=== PATIENT | female | born 1980 | race Caucasian/White ===

== ENCOUNTER 2025-07-13 02:40 | Emergency (ER) | payer BC, SELFPAY ==
[2025-07-13 02:42] VITALS: BP 112/76
--- NOTE | 2025-07-13 03:07 | ED.GENMED ---
History of Present Illness
General
Chief Complaint: Skin Surface Trauma
Source: patient
Exam Limitations: none
Time Seen by Provider: 07/13/25 02:58
Nursing documentation reviewed up to this point in time: agreed with
History of Present Illness
History of Present Illness:
Patient presents to ED secondary to persistent bleeding after she accidentally cut her right index finger with a kitchen knife, shortly prior to arrival. Patient was unable to control bleeding at home. Patient otherwise is healthy, and does not
take any blood thinning medications. Denies loss of sensation. Denies any other injury. Per patient, tetanus vaccination up-to-date.
Past History
Past History
ED Past Medical History: Other (Ovarian Cysts) and Other (Abdominal migraines, benign heart murmur,)
ED Past Surgical History: Appendectomy and Gynecological
Social History
Tobacco: Non-smoker
Alcohol: None
Drug: None
Personal:
Living: with family
Review of Systems
Review of Systems
Allergies reviewed?: Yes
All Other Systems: ROS reviewed and negative except as documented in HPI and ROS
Constitutional: Reports no symptoms
Skin: Reports other (Finger laceration)
Neurological: Reports no symptoms
Phy Exam
Physical Exam
Physical Exam:
Physical Exam
General: no apparent distress, not acutely ill. afebrile
Head: nc/at. eomi
Neck: supple. normal range of motion.
Neuro: alert and oriented x 3. no focal neurological deficits
Skin: an approx 2cm linear, horizontal laceration noted over right 2nd digit, along dorsal surface at 1st/2nd interphalangeal joint, without active bleeding
Psychiatric: well kept. interactive and cooperative
Extremities: no edema. no calf tenderness.
Course
Vital Signs
Initial and Last Documented VS:
Initial Vital Signs
Pulse Resp BP Pulse Ox
89 16 112/76 100
07/13/25 02:42 07/13/25 02:42 07/13/25 02:42 07/13/25 02:42
Last Documented Vital Signs
Pulse Resp BP Pulse Ox
89 16 112/76 100
07/13/25 02:42 07/13/25 02:42 07/13/25 02:42 07/13/25 03:10
Procedures
Laceration Closure
Right Distal Dorsal Second Finger:
Status of Wound: clean
Size of Wound in cm: 2
Description of Wound Edges: sharp
Preparation: cleaned with SurClens
Anesthesia: 1% Lidocaine
Revision/Debridement: routine- no revision
Type of Closure: single layer closure
Skin Closure Material: 5-0 nylon
Number of sutures: 3
MDM/Problems Addressed
MDM/Problems Addressed:
Wound well-approximated after 3 suture placement. Finger splint applied to promote healing. Advised PCP follow-up for reevaluation, including suture removal in 7 to 10 days.
*Pulse Oximetry
SaO2: 100
Oxygen Mode of Delivery: Room air
Patient hypoxic: no
*Critical Care Note
Total Time (30-74mins, 75-104mins- exclusive of procedures): Not Applicable
ED Attending Note
-
Portions of this chart may have been created with voice recognition software.� Occasional wrong word or��sound alike� substitutions may have occurred due to the inherent limitations of voice recognition software.
Discharge Plan
Departure
Patient Disposition: Home (Routine Discharge)
Date of Disposition: 07/13/25
Time of Disposition: 03:36
Patient with high blood pressure during this ER visit?: No
Condition: Good
Discharge Problem:
Finger laceration
Instructions: Laceration Repair With Stitches (DC)
Prescriptions:
No Action
ondansetron 4 MG tablet,disintegrating
4 mg PO Q8 PRN (Reason: nausea)
polyethylene glycol 3350 17 GRAMS powder in packet
17 grams PO DAILY Qty: 30 0RF
sumatriptan succinate 50 MG tablet
50 mg PO DAILYPRN PRN (Reason: MRX1, 2 DOSE MAX IN 24H) Qty: 0 0RF
docusate sodium 100 MG capsule
100 mg PO BID Qty: 60 0RF
oxycodone 5 MG tablet
5 mg PO Q4HPRN PRN (Reason: pain) Qty: 20 0RF
omeprazole magnesium [Prilosec OTC] 20 MG tablet,delayed release (DR/EC)
20 mg PO BID Qty: 0 0RF
hydrocodone-acetaminophen 1 TABLET tablet
1 tab PO Q4HPRN PRN (Reason: severe pain) Qty: 11 0RF
Referrals:
Shay Shah MD [Family Provider, Family Practice]
Activity Restrictions/Additional Instructions:
As discussed, please follow-up with your primary care for reevaluation, including suture removal in 7 to 10 days.
Interventions
Interventions:
*Risk Screen - Suicide Last Done: 07/13/25 02:44
*General Assessment Last Done: 07/13/25 02:44
*Neglect/Abuse Screening Last Done: 07/13/25 02:44
*ED- Fall Risk Assessment Last Done: 07/13/25 02:44
*ED COVID-19 Vaccine History Last Done: 07/13/25 02:44
*ED Influenza Vaccine History Last Done: 07/13/25 02:44
*Nursing Disposition Last Done: 07/13/25 03:41
ED-Skin Assessment Last Done: 07/13/25 03:27
Discharge Date and Time
Discharge Date/Time: 07/13/25 03:42
Print Language: ANGOLAN
== END 2025-07-13 03:42 | disposition home or self-care (01) ==
LOC: EMR 02:40
PROVIDERS: EMERGENCY PHYSICIAN Emergency Medicine; FAMILY PHYSICIAN Family Medicine
DX: S61.210A Laceration without foreign body of right index finger without damage to nail, initial encounter (principal); W26.0XXA Contact with knife, initial encounter; Y92.000 Kitchen of unspecified non-institutional (private) residence as the place of occurrence of the external cause; Z90.49 Acquired absence of other specified parts of digestive tract
CPT/HCPCS: 99282; 12001